=== PATIENT | female | born 1970 | race Caucasian/White ===

== ENCOUNTER 2018-04-26 13:52 | Inpatient (IN) | payer OTHER ==
[~2018-04-26] VITALS: Ht 153.7 cm; Wt 79.4 kg
--- NOTE | 2018-04-26 14:10 | NUR ---
EKG DONE IN TRIAGE
[2018-04-26 14:13] VITALS: BP_SYST 130
--- NOTE | 2018-04-26 14:15 | NUR ---
Placed in room 08 . Placed on gambling monitor, blood pressure machine and pulse oximeter. To gown for exam. Side rails up. Report given to REMIGIO EISENBERG.
--- NOTE | 2018-04-26 14:15 | NUR ---
Pt AAOx4 ambulated into ED c/o unprovoked 8/10 L sided intermittent CP x 3 hours. Pt also c/o nausea, and weakness. Skin pink dry and warm, breathing even and unlabored. VSS. No other injuries/complaints per pt/noted. Will continue to monitor.
[2018-04-26] MEDS ORDERED: ASPIRIN 81 MG TAB.CHEW PO ONE (14:30)
[2018-04-26 15:13] LABS: HEMATOCRIT 37.8 % (36-48); HEMOGLOBIN 12.7 g/dL (12.0-16.0); MEAN CORPUSCULAR HEMOGLOBIN 28 pg (27-31); MEAN CORPUSCULAR VOLUME 84 fL (79.0-98.0); RED BLOOD CELL COUNT(AUTO) 4.52 MIL/uL (4.2-6.2); WHITE BLOOD COUNT (AUTO) 9.4 K/uL (4.8-10.8)
[2018-04-26 15:14] LABS: BASOPHILS % (AUTO) 0.3 % (0.0-2.0); EOSINOPHILS # (AUTO) 0.1 K/uL (0.0-0.4); EOSINOPHILS % (AUTO) 0.9 % (0.0-4.0); LYMPHOCYTES # (AUTO) 2.3 K/uL (1.0-5.5); MEAN CORPUSCULAR HGB CONC 34 % (32-36); MONOCYTES # (AUTO) 0.3 K/uL (0.0-1.0); MONOCYTES % (AUTO) 3.4 % (1.7-9.3); NEUTROPHILS # (AUTO) 6.7 K/uL (1.8-7.7); NEUTROPHILS % (AUTO) 71.4 % (40.0-70.0)
[2018-04-26 15:18] LABS: PROTHROMBIN TIME 10.6 SECS (9.5-12.5)
[2018-04-26 15:21] LABS: PLATELET COUNT (AUTO) 376 K/uL (130-430)
[2018-04-26 15:25] LABS: BILIRUBIN,URINE NEGATIVE (NEGATIVE); BLOOD, URINE 1+ (NEGATIVE); CLARITY/URINE CLEAR (CLEAR); COLOR,URINE YELLOW (YELLOW); GLUCOSE,URINE NEGATIVE (NEGATIVE); KETONES,URINE NEGATIVE (NEGATIVE); LEUKOCYTE ESTERASE ,URINE NEGATIVE (NEGATIVE); NITRITE, URINE NEGATIVE (NEGATIVE); PH,URINE 5.5 (5.0-8.0); PROTEIN URINE NEGATIVE (NEGATIVE); UROBILINOGEN,URINE 0.2 (0.2-1.0)
[2018-04-26 15:34] LABS: CALCIUM 8.7 mg/dL (8.4-11.0); POTASSIUM 3.5 mmol/L (3.5-5.1)
[2018-04-26 15:35] LABS: ALBUMIN 3.6 g/dL (3.4-4.8); CREATININE 1.05 mg/dL (0.55-1.30); TOTAL BILIRUBIN 0.5 mg/dL (0.0-1.0)
[2018-04-26 15:40] LABS: BACTERIA,URINE FEW /HPF (None Seen); MUCUS,URINE None Seen /LPF (None Seen); RBC,URINE 0-3 /HPF (0-3); WBC,URINE 0-3 /HPF (0-3)
--- NOTE | 2018-04-26 16:00 | NUR ---
Patient resting quietly in no acute distress, vital signs stable, respirations even and unlabored, skin warm and dry to touch. Awaiting dispo.
--- NOTE | 2018-04-26 16:35 | NUR ---
Tonio jadeaddie in [facility] - 04/26/18 at [address] Wilkerson at bedside speaking with patient regarding lab results and plan of care, questions answered by Dr Wilkerson.
--- NOTE | 2018-04-26 16:39 | NUR ---
ER Dr. MCCAULEY at bedside examining patient.
[2018-04-26] MEDS ORDERED: LISI10TA5 PO (17:04)
--- NOTE | 2018-04-26 17:04 | NUR ---
Pt states she is full code
[2018-04-26] MEDS ORDERED: ONDANSETRON HCL 4 MG/2 ML VIAL IVP PRN (17:15)
[2018-04-26] MEDS ORDERED: ACETAMINOPHEN 325 MG TABLET PO PRN (17:15)
[2018-04-26] MEDS ORDERED: NITROGLYCERIN 0.4 MG TAB.SUBL SL PRN (17:15)
[2018-04-26] MEDS ORDERED: MORPHINE 4 MG/ML INJ. SYRINGE IVP PRN (17:15)
--- NOTE | 2018-04-26 17:20 | NUR ---
Patient will be admitted to care of Dr Lira. Admitted to tele unit. Will go to room 134-B. Belongings list completed. Summary report printed. Report will be given at bedside.
--- NOTE | 2018-04-26 17:25 | NUR ---
Transfer to tele room 134-B via ACLS protocol. Licensed nurse present. IV present no signs or symptoms of infiltration.
--- NOTE | 2018-04-26 17:45 | NUR ---
ADMISSION NOTE Received patient from ER via [email or web address], received report from PROGRESS MAN. Patient admitted with diagnosis of CHEST PAIN. Patient oriented to hospital routine, call light, toileting and safety-patient verbalized understanding.
[2018-04-26 17:56] VITALS: BP_SYST 139
--- NOTE | 2018-04-26 18:00 | NUR ---
Patient received a/ox4, denies pain, assessment complete, educated on plan of care and call light system and to call for any assistance, she verbalized understanding, family at bedside, call light placed within reach, bed in lowest position, two side rails up, fall and aspiration precautions in place.
--- NOTE | 2018-04-26 18:57 | NUR ---
Closing note patient resting in bed, awake, denies pain, all needs met thus far, will endorse report to NOC shift nurse, bed in lowest position, two side rails up, call light within reach, fall and aspiration precautions in place.
--- NOTE | 2018-04-26 19:32 | NUR ---
Opening notes Received patient in bed resting comfortably aaox4 and able to verbalize their needs. IV on the right AC 20 gauge, flushed with good return, no infiltration. Refused bed alarm. Educated on risk and benefits and acknowledged understanding. Breath sounds wnl through out. Heart sound wnl. Bowel sounds active throughout. Pain of 5/10 on left chest but tolerating with no need for medication at this time. Oriented patient to the room and use of the call light. Call light placed within reach and will cont to monitor on rounds.
[2018-04-26 20:00] VITALS: BP_SYST 142
[2018-04-26] MEDS: METOPROLOL TARTRATE 25 MG TABLET PO SCH (20:30)
--- NOTE | 2018-04-26 22:37 | NUR ---
Patient in bed resting comfortably. Tolerated PO meds with no adverse reaction. No respiratory distress. Chest pain to the upper left chest tolerable at 3/10. No pain meds requested. Informed patient to call immediately if pain increases or persists. Will cont to monitor on rounds.
[2018-04-26 23:55] VITALS: BP_SYST 120
--- NOTE | 2018-04-27 00:54 | NUR ---
Patient resting comfortably and asleep. No appearance of chest pain. No respiratory distress. Will cont to monitor.
--- NOTE | 2018-04-27 02:46 | NUR ---
Patient asleep in with no appearance of chest pain or respiratory distress. Call light within reach. Will cont to monitor on rounds.
--- NOTE | 2018-04-27 04:54 | NUR ---
No change in condition. Patient resting comfortably.
--- NOTE | 2018-04-27 06:38 | NUR ---
CLosing Notes Patient resting in bed. IV intact, clean and not infiltrated. No chest pain at this time. No respiratory distress. All needs have been met. Safety precautions in place, will endorse care to oncoming shift.
--- NOTE | 2018-04-27 07:30 | NUR ---
[facility]. aao x4. no oxygen noted. lungs bilaterally clear. abdomen soft and non distended. kind of obsese. but stable. no chest pain nor sob noted. able to have breakfast 100%. no complained made so far. call lights within reach. will continue to monitor patients status. informed patient to call for assistance.
--- NOTE | 2018-04-27 08:00 | NUR ---
still eating at this time. stable and watching tv.
[2018-04-27 08:07] VITALS: BP_SYST 126
[2018-04-27] MEDS: METOPROLOL TARTRATE 25 MG TABLET PO SCH (08:38)
[2018-04-27] MEDS ORDERED: ENOXAPARIN SODIUM 40 MG/0.4 ML SYRINGE SUBCUT SCH (09:00)
[2018-04-27] MEDS ORDERED: ASPIRIN 325 MG TABLET PO SCH (09:00)
[2018-04-27] MEDS ORDERED: PANTOPRAZOLE SODIUM 40 MG TAB PO SCH (09:00)
[2018-04-27] MEDS ORDERED: LISINOPRIL 10 MG TABLET (PRINIVIL) PO SCH (09:00)
--- NOTE | 2018-04-27 09:00 | NUR ---
Dr Lira came and see the patient. made orders to discharge today. but needs to wait for mail distribution scheme examiner to come. patient is aware.
--- NOTE | 2018-04-27 09:04 | NUR ---
due medication given as ordered. still on lovenox therapy.
--- NOTE | 2018-04-27 09:41 | NUR ---
CONSULT CARDIOLOGY CHEST PAIN DR GUO [phone] SYLVESTER KUHN [employer] PROFESSOR [facility]
--- NOTE | 2018-04-27 10:00 | NUR ---
dr luna cardiology consult came and see the patient. covering for the dr. christy
--- NOTE | 2018-04-27 10:00 | NUR ---
CM DC PLANNING: [facility] & ORDERS TO DC HOME TODAY. INFO FAXED; AND, RADHA STATED SHE WOULD LIKE AN ORDER FOR HOME HEALTH SERVICES FOR F/UP DUE TO THEIR PROTOCOL FOR Pt's INSURANCE PLAN. JOANA REQUESTED HH ORDER FROM DR. Latasha LOVELACE; RN ENTERED INTO ELECTRONIC CHART; AND CM [facility] STATD SHE WILL ARRANGE FOR HH SERVICES AND NOTIFY Pt WHEN AT HOME. Pt TO DC HOME AFTER ECHO COMPLETED.
[2018-04-27] MEDS ORDERED: PRO40 PO (11:05)
[2018-04-27] MEDS ORDERED: IBUP-1968 PO (11:06)
--- NOTE | 2018-04-27 11:17 | NUR ---
no chest pain nor sob noted. awaiting for the tech to do 2 d echo doppler before going home.
--- NOTE | 2018-04-27 12:30 | NUR ---
CM DC PLANNING: DTR & Pt UPDATED REGARDING HH REQUEST AND POC BY INSURANCE CM; AND, Pt VERBALIZED UNDERSTANDING AND AGREEMENT.
[2018-04-27 12:31] VITALS: BP_SYST 107
--- NOTE | 2018-04-27 13:00 | NUR ---
patient stable no chest pain noted. will continue monitor patients status.
[2018-04-27 14:04] VITALS: BP_SYST 120
--- NOTE | 2018-04-27 14:30 | NUR ---
2 d echo doppler done at this time. will continue to monitor patients status.
--- NOTE | 2018-04-27 15:55 | NUR ---
patient left with the daughter for home. instructed patient that home health will call for follow up care. discharge instruction given to the patient, including a prescription for protonix tablet and ibuprofen tablet. no chest pain no sob noted. iv access removed and scds i d band removed. refused to have wheelchair. accompany to the car in stable condition.
--- NOTE | 2018-04-30 12:32 | NUR ---
Discharge Follow Up Phone Call [employer] Distillation Supervisor phoned patient, , on 04/29/18 and left a voicemail message. FOOD STOREROOM CLERK phoned patient today. Patient stated that she was doing okay but feeling tired. She filled her prescriptions and is taking her medication as directed. She has a follow up appointment with her PCP today and will bring her paperwork. [facility] began services this morning. Patient stated she does not use a blood glucose monitor, and plans on discussing today with her PCP. Patient had no questions or concerns.
== END 2018-04-27 15:50 | disposition home health service (06) | DRG 313 ==
LOC: SED 13:52 → STU 17:11
PROVIDERS: ADMIT Internal Medicine; ATTEND Internal Medicine
DX: R07.89 Other chest pain (principal); E11.9 Type 2 diabetes mellitus without complications; E66.9 Obesity, unspecified; I10 Essential (primary) hypertension; J45.909 Unspecified asthma, uncomplicated; Z82.49 Family history of ischemic heart disease and other diseases of the circulatory system; Z68.33 Body mass index [BMI] 33.0-33.9, adult; Z91.010 Allergy to peanuts
CPT/HCPCS: 36415; 71045; 80053; 81000-TC; 82550-TC; 83880; 84484; 85025; 85379; 85610-TC; 93005; 93306; 99285; G0378; J1650